=== PATIENT | female | born 1990 | race Caucasian/White ===

== ENCOUNTER 2018-07-04 05:45 | Day surgery (SDC) | payer OTHER ==
[~2018-07-04] VITALS: Ht 162.6 cm; Wt 109.8 kg
--- NOTE | ~2018-07-04 | OR ---
[facility] [address], [place] [address] Draft DATE OF OPERATION: 07/04/2018 SURGEON: Sylvester Dalton MD PREOPERATIVE DIAGNOSIS: Right medial breast mass thickening, ultrasound findings of possible hamartoma. POSTOPERATIVE DIAGNOSIS: Right medial breast mass thickening, ultrasound findings of possible hamartoma clinically consistent with fibrocystic disease. PROCEDURE PERFORMED: Right excisional breast biopsy. ANESTHESIA: General LMA; Sylvester Nelson CRNA; and local 10 mL of 0.25% Marcaine with epinephrine. INDICATION: This 28-year-old white woman is a patient of Dr. Gomez of [place], [place]. She felt a masslike lesion in the medial aspect of the right breast. Imaging studies including 3D diagnostic mammography performed on June 19, 2018 showed a rounded lucent zone in the inferior medial aspect of the right breast consistent with lipoma or hamartoma. There was no associated microcalcification or suspicious mass. The patient thinks that the area has enlarged and is quite worried about it. Options have been presented including continued observation versus excision. Of note, an ultrasound was performed on June 19, 2018 showing the focal zone also consistent with possible hamartoma. She opts to undergo excision of the area at this time understanding the risks of bleeding, infection, cosmetic deformity, and need for additional treatment should malignancy be found. As regard family history that is not entirely certain as she is adopted though. From what she has been able to gather from various sources including Facebook and the Internet, she may have relatives in [place], one of whom was in her early 30s with inflammatory breast cancer. On that basis, she wishes to proceed with definitive diagnosis. FINDINGS: The tissue was fibroglandular. I did not detect a distinct mass and no clear finding of a malignant mass. Wide excision was undertaken from the medial aspect of the right breast extending to near the areolar margin. PATIENT NAME: JABIER ANDRES OPERATIVE REPORT DATE OF : 88 REPORT #: [id number] PHYSICIAN: SYLVETSER DALTON MD PCP: UNASSIGNED DOCTOR REPORT IS CONFIDENTIAL AND NOT TO BE RELEASED WITHOUT AUTHORIZATION [facility] [address], [place] [address] Draft Parenchymal reapproximation allowed for good cosmesis. DESCRIPTION OF PROCEDURE: The patient was brought to the operating room, given a general anesthetic by LMA technique. Preoperative antibiotic Ancef was given. Sequential compression device stockings were used and heparin subcutaneously administered. The right breast was prepared with a chlorhexidine solution and draped sterilely. The previously marked and designated area of the medial right breast was palpated showing a thickened area in comparison to the remaining breast. A transverse incision was made in this area and flaps were elevated superiorly and inferiorly, and wide resection undertaken primarily with electrocautery. This extended to the medial aspect and a more fibrous tissue was encountered in that area. Wide deep excision was undertaken. Specimen measured at least 6 cm and was at least 4 cm in depth. Electrocautery was used for hemostasis. The parenchyma of the breast was reapproximated with interrupted 2-0 Vicryl in layers. A running subcuticular 3-0 Vicryl was used for the skin. Steri-Strips were applied as was a Mepilex silver sponge dressing and an OpSite. The specimen was oriented for excision including a long stitch laterally, short stitch superior and two stitches in the deep margin. MD GIBRAN Arenas/MODL /[id number] cc: BARRY Cobb MD Copies: CATHLEEN MONTANA NAILIM MD ~ PATIENT NAME: JABIER ANDRES NICOLAS OPERATIVE REPORT DATE OF : 88 REPORT #: [id number] PHYSICIAN: SYLVESTER DALTON MD PCP: UNASSIGNED DOCTOR REPORT IS CONFIDENTIAL AND NOT TO BE RELEASED WITHOUT AUTHORIZATION
[~2018-07-04 05:45] MED LIST: FISH OIL 1,0001 EAC5 PO; VITAMIN B COMP1 EAC1 PO; VYVANSE60 MG PO; XANAX0.25 MG PO
--- NOTE | 2018-07-04 08:32 | NUR ---
07/04/18 0832 Geeta Lovelace 0865 PT ARRIVED TO PACU ON 6L VIA MASK. PT DENIES NAUSEA AND PAIN. PT AWAKE OFF AND ON. RESP EVEN AND UNLABORED. 0827 O2 MASK REMOVED. PLAN OF CARE DISCUSSED. DRESSING CDI. PT RESTING IN BED WITH NO CONCERNS AT THIS TIME.
[2018-07-04] MEDS ORDERED: TYLENOL325 MG PO (08:35)
[2018-07-04] MEDS ORDERED: OXYCODON-ACETA1 EAC2 PO (08:35)
[2018-07-04] MEDS ORDERED: IBUPROFEN600 MG PO (08:36)
--- NOTE | 2018-07-04 09:32 | NUR ---
0850 PT BACK TO ROOM FROM PACU AWAKE AND ALERT STATES PAIN VERY MINIMAL AT 2/10 DENIES NAUSEA. PT DRINKING WATER TOLERATES WELL. AND FAMILY AT BEDSIDE.
--- NOTE | 2018-07-04 09:35 | NUR ---
0930 PT EATING CRACKERS TOLERATES WELL CONTINUES TO HAVE MINIMAL PAIN. DENIES NAUSEA.
--- NOTE | 2018-07-04 10:27 | NUR ---
0932 DISCHARGE INSTRUCTIONS GIVEN TO PT AND BOTH VOICED UNDERSTANDING. PT UP TO THE BATHROOM SHE WAS ABLE TO VOID 750 ML OF LIGHT YELLOW URINE. 1700 IV FLUIDS GIVEN TOTAL.
--- NOTE | 2018-07-05 08:42 | NUR ---
PT IS ALERT, ORIENTED AND SUPPORTED BY HER SCOTT. PT SEEMS TO BE DEALING WELL WITH SURGERY TODAY, SEEMS INFORMED. PT REQUESTED PRAYER. WILL FOLLOW NEEDED
[2018-07-08] MEDS ORDERED: NORCO 5-325 TA1 EACH PO (09:02)
== END 2018-07-04 10:05 | disposition home or self-care (01) ==
LOC: OPS 05:45 → DS 05:45 → OPS 06:45
PROVIDERS: Surgery
PROC: 0HBT0ZX Excision of Right Breast, Open Approach, Diagnostic (ICD-10-PCS; principal; 2018-07-04 06:45)
DX: N60.11 Diffuse cystic mastopathy of right breast (principal); F32.9 Major depressive disorder, single episode, unspecified; F41.9 Anxiety disorder, unspecified; E66.01 Morbid (severe) obesity due to excess calories; Z91.040 Latex allergy status; Z79.899 Other long term (current) drug therapy; Z68.41 Body mass index [BMI] 40.0-44.9, adult; Z87.891 Personal history of nicotine dependence
CPT/HCPCS: 00404; J0330; J0690; J1100; J1644; J1885; J2250; J2405; J2704; J2765; J3010; J7120